=== PATIENT | female | born 1985 | race Caucasian/White ===

== ENCOUNTER 2018-06-04 13:13 | Emergency (ER) | payer OTHER ==
[2018-06-04] MEDS: HALOPERIDOL 5 MG INJ IM (13:44)
[2018-06-04] MEDS: SOD CHLORIDE 0.9% 1,000 ML IV (13:44)
[2018-06-04] MEDS: LORAZEPAM 2 MG INJ IV (13:44)
[2018-06-04 14:07] LABS: ADD MAN DIFF? NO
[2018-06-04 14:10] LABS: BASOPHILS % 0.4 % (0.0-2.0); EOSINOPHILS # 0.1 10^3/ul (0.0-0.5); EOSINOPHILS % 0.6 % (0.0-7.0); HEMOGLOBIN 13.2 g/dl (12.0-16.0); LYMPHOCYTES # 2.5 10^3/ul (0.8-2.9); LYMPHOCYTES % 29.4 % (15.0-51.0); MEAN CORPUSCULAR HEMOGLOBIN 31.4 pg (29.0-33.0); MEAN CORPUSCULAR VOLUME 95.2 fl (82.0-101.0); MEAN PLATELET VOLUME 10.4 fl (7.4-10.4); MONOCYTE # 0.7 10^3/ul (0.3-0.9); MONOCYTES % 7.9 % (0.0-11.0); NEUTROPHIL # 5.2 10^3/ul (1.6-7.5); NEUTROPHILS % 61.5 % (39.0-77.0); PLATELET COUNT 234 10^3/UL (140-415)
[2018-06-04 14:10] LABS: WHITE BLOOD COUNT 8.5 10^3/ul (4.8-10.8)
[2018-06-04 14:28] LABS: ALANINE AMINOTRANSFERASE 55 IU/L (13-69); ALBUMIN 4.2 g/dl (3.3-4.9); ALBUMIN/GLOBULIN RATIO 1.27; ALKALINE PHOSPHATASE 79 IU/L (42-121); ANION GAP 12 (8-16); ASPARTATE AMINO TRANSFERASE 56 IU/L (15-46); BILIRUBIN,INDIRECT 0.7 mg/dl (0-1.1); BILIRUBIN,TOTAL 0.7 mg/dl (0.2-1.3); BLOOD UREA NITROGEN 11 mg/dl (7-20); CARBON DIOXIDE 25 mmol/L (21-31); CHLORIDE 110 mmol/L (97-110); CREATININE 0.69 mg/dl (0.44-1.00); GLUCOSE 86 mg/dl (70-220); SODIUM 144 mmol/L (135-144); TOTAL PROTEIN 7.5 g/dl (6.1-8.1)
[2018-06-04 14:29] LABS: ETHANOL < 10.0 mg/dl
[2018-06-04 14:31] LABS: POTASSIUM 2.9 mmol/L (3.5-5.1)
[2018-06-04 14:39] LABS: TROPONIN-I < 0.010 ng/ml (0.000-0.120)
[2018-06-04] MEDS: POTASSIUM CHLORIDE 100 ML IVPB ×3 (16:48→19:41)
[2018-06-04] MEDS: POTASSIUM CHLORIDE (SR) 20 MEQ TAB PO (18:38)
== END 2018-06-04 23:05 | disposition home or self-care (01) ==
LOC: E/R 23:05
DX: F15.10 Other stimulant abuse, uncomplicated (principal); T67.5XXA Heat exhaustion, unspecified, initial encounter; E86.0 Dehydration; E87.6 Hypokalemia; R40.2142 Coma scale, eyes open, spontaneous, at arrival to emergency department; R40.2252 Coma scale, best verbal response, oriented, at arrival to emergency department; R40.2362 Coma scale, best motor response, obeys commands, at arrival to emergency department
CPT/HCPCS: 36415; 80053; 80307; 84484; 85025; 93005; 96372; 96374; 99284-25

== ENCOUNTER 2018-11-01 19:09 | Emergency (ER) | payer OTHER ==
[2018-11-01] MEDS: ARIPIPRAZOLE 5 MG TAB PO (20:49)
== END 2018-11-01 20:55 | disposition home or self-care (01) ==
LOC: E/R 19:09
DX: F31.9 Bipolar disorder, unspecified (principal); F17.210 Nicotine dependence, cigarettes, uncomplicated
CPT/HCPCS: 99283; Z7502